=== PATIENT | female | born 1985 | race Two or more races ===

== ENCOUNTER 2025-08-07 01:20 | Emergency (ER) | payer MEDICAID, OTHER ==
[~2025-08-07] VITALS: Ht 152.4 cm; Wt 54.5 kg
[2025-08-07] MEDS ORDERED: PRED20TA2 PO (03:06)
[2025-08-07] MEDS ORDERED: ERY05OO OP (03:06)
[2025-08-07] MEDS ORDERED: AMOX875T4 PO (03:06)
--- NOTE | 2025-08-07 03:06 | ED.PDOC ---
Eye-HPI HPI Comments 40-year-old female presents to ER with bilateral eye complaint x2 days. Patient reports she started experiencing swelling/itchiness to bilateral upper eyelids two days ago that started one day after she had gotten artificial eyelashes applied to bilateral upper eyelashes. States that she did use coconut oil to remove a majority of her lashes prior to arrival to ER with some relief. Denies any pain and presents to ER afebrile, with steady gait, in no distress. Denies fever, body aches, chills, vision changes, foreign body sensation or any further symptoms/complaints Chief Complaint: Eye Problem Time Seen by MD: 01:35 Primary Care Provider: UNKNOWN Reviewed Notes: Nurses Notes, Medications, Allergies Allergies: Coded Allergies: No Known Drug Allergy (Verified Allergy, Unknown, 08/07/25) Home Meds Active Scripts Erythromycin (Erythromycin) 5 Mg/Gm Oin, 1 MG OP 6XD for 7 Days, #1 OIN 0 Refills Prov:AGA GOULD 08/07/25 Amoxicillin & Pot Clavulanate (Amoxicillin/Potassium Cla) 875 Mg Tab, 1 TAB PO BID for 7 Days, #14 TAB 0 Refills Prov:AGA GOULD 08/07/25 Prednisone (Prednisone) 20 Mg Tab, 20 MG PO BID for 5 Days, #10 TAB 0 Refills Prov:AGA GOULD 08/07/25 Information Source: Patient Mode of Arrival: Ambulatory Past Medical History PAST MEDICAL HISTORY: Denies Surgical History: Denies all surgeries ART DEPARTMENT HEAD History: No Pertinent ART DEPARTMENT HEAD History Family History Family History: Unknown Social History Smoker: Non-Smoker Alcohol: Denies ETOH Use Drugs: Denies Drug Use Lives In: Home Constitutional: denies: chills, diaphoresis, fatigue, fever, malaise, sweats, weakness, others EENTM: reports: others (As stated in HPI) Respiratory: denies: cough, hemoptysis, orthopnea, SOB at rest, shortness of breath, SOB with excertion, stridor, wheezing, others Cardiovascular: denies: chest pain, dizzy spells, diaphoresis, Dyspnea on exertion, edema, irregular heart beat, left arm pain, lightheadedness, palpitations, PND, syncope, others Gastrointestinal: denies: abdomen distended, abdominal pain, blood streaked bowels, constipated, diarrhea, dysphagia, difficulty swallowing, hematemesis, melena, nausea, poor appetite, poor fluid intake, rectal bleeding, rectal pain, vomiting, others Genitourinary: denies: abnormal vagina bleeding, burning, dyspareunia, dysuria, flank pain, frequency, hematuria, incontinence, pain, , vagina discharge, urgency, others Neurological: denies: dizziness, fainting, headache, left sided numbness, left sided weakness, numbness, paresthesia, pre-existing deficit, right sided numbness, right sided weakness, seizure, speech problems, tingling, tremors, weakness, others Musculoskeletal: denies: back pain, gout, joint pain, joint swelling, muscle pain, muscle stiffness, neck pain, others Integumetry: denies: bruises, change in color, change in hair/nails, dryness, laceration, lesions, lumps, rash, wounds, others Allergic/Immunocompromised: denies: Difficulty Healing, Frequent Infections, Hives, Itching, others Hematologic/Lymphatic: denies: anemia, blood clots, easy bleeding, easy bruising, swollen glands, others Endocrine: denies: excessive hunger, excessive sweating, excessive thirst, excessive urination, flushing, intolerance to cold, intolerance to heat, unexplained weight gain, unexplained weight loss, others Psychiatric: denies: anxiety, bipolar disorder, depression, hopeless, panic disorder, schizophrenia, sleepless, suicidal, others Physical Exam General Appearance: No Apparent Distress HEENT: PERRL/EOMI, Pharynx Normal, TMs Normal, Other (Mild swelling noted to bilateral upper/lower eyelids and minimal clear drainage noted to bilateral eyes. No subconjunctival injection/foreign body appreciated to bilateral eyes bilaterally. No erythema/further skin changes noted. Minimal artificial eyelashes noted to bilateral upper eyelashes ) Neck: Full Range of Motion, Non-Tender, Normal Respiratory: Chest Non-Tender, Lungs Clear, No Accessory Muscle Use, No Respiratory Distress, Normal Breath Sounds Cardiovascular: No Murmur, No Gallop, Regular Rate/Rhythm Breast Exam: Deferred Gastrointestinal: NOT DONE Genitalia: Deferred Pelvic: Deferred Rectal: Deferred Extremities: Normal capillary refill, Normal range of motion Neurologic: Alert, sort line worker II-XII nml as Tested, No Motor Deficits, Normal Affect, Normal Mood, No Sensory Deficits Cerebellar Function: Normal Reflexes: Normal Skin: Dry, Normal Color, Warm Lymphatic: No Adenopathy Was a procedure done? Was a procedure done?: No Sedation Sedation?: No EENT DIFF Eye: Bacterial, Corneal Abrasion, Foreign Body-Corneal, Orbital Cellulits, Periorbital Cellulits X-Ray, Labs, Meds, VS Vital Signs Date Time Temp Pulse Resp B/P (MAP) Pulse Ox O2 Delivery O2 Flow Rate FiO2 08/07/25 01:26 97.1 108 18 124/93 99 97.1 Solu-Medrol 125 mg IM ordered Claritin 10 mg p.o. ordered Erythromycin ordered, patient educated on proper use/dosage Patient refused to have remainder of eyelashes removed in ER Advised on warm/moist compresses and mineral oil to remove remainder of lashes Advised on avoidance of artificial eyelashes Advised to follow up with PCP in 1-2 days Patient verbalized understanding and agreeable with current plan of care Advised to return to ER immediately if symptoms worsen Time of 1ST Reevaluation: 02:44 Reevaluation 1ST: N/A Patient Education/Counseling: Diagnosis, Treatment, Prognosis, Need For Follow Up Family Education/Counseling: No Family Present SEPSIS Sepsis Screen Date sepsis recognized/suspect: Aug 07, 2025 Time Sepsis recognized/suspect: 0126 Recent Procedure: No On Antibiotic Therapy: No Respiratory Rate >20: No Heart Rate >90: No Temp<36 C (96.8 F) or >38.3 C: No SBP <90 or MAP <65 mmHG: No New Acute Mental Status Change: No Is the patient on CPAP, BIPAP,: No Vital Signs Date Time Temp Pulse Resp B/P (MAP) Pulse Ox O2 Delivery O2 Flow Rate FiO2 08/07/25 01:26 97.1 108 18 124/93 99 97.1 Departure 1 Departure Time of Disposition: 03:02 Impression: Primary Impression: Chemical conjunctivitis of both eyes Disposition: HOME / SELF CARE / HOMELESS Condition: Stable e-Prescriptions Erythromycin (Erythromycin) 5 Mg/Gm Oin 1 MG OP 6XD for 7 Days, #1 OIN 0 Refills Prov: AGA GOULD 08/07/25 Amoxicillin & Pot Clavulanate (Amoxicillin/Potassium Cla) 875 Mg Tab 1 TAB PO BID for 7 Days, #14 TAB 0 Refills Prov: AGA GOULD 08/07/25 Prednisone (Prednisone) 20 Mg Tab 20 MG PO BID for 5 Days, #10 TAB 0 Refills Prov: AGA GOULD 08/07/25 Critical Care Note Critical Care Time?: No Stability Stability form required: No Heart Score Heart Score: Heart Score Response (Comments) Value History N/A 0 EKG N/A 0 Age N/A 0 Risk Factors N/A 0 Troponin N/A 0 Total 0 AGA GOULD Aug 07, 2025 03:06
[2025-08-07 06:09] VITALS: BP 142/83; PULSE 94; RESP 18; TEMP 98.4; O2SAT 95
[2025-08-07] MEDS: ERYTHROMY OPTH OINT 5mg/gm 1gm or 3.5gm tube OP ONE (06:10)
[2025-08-07] MEDS: methylPREDNISolone SOD SUCC 125 MG/2 ML VL IM ONE (06:10)
[2025-08-07] MEDS: LORATADINE 10 MG TAB PO ONE (06:10)
== END 2025-08-07 06:17 | disposition home or self-care (01) ==
LOC: ER 01:20
DX: H10.213 Acute toxic conjunctivitis, bilateral (principal); Z79.899 Other long term (current) drug therapy; Z79.52 Long term (current) use of systemic steroids
CPT/HCPCS: 96372; 99283; J2919